=== PATIENT | female | born 1965 | race Caucasian/White ===

== ENCOUNTER 2016-07-28 11:33 | Day surgery (SDC) | payer OTHER ==
[2016-07-28] MEDS ORDERED: MIDAZOLAM HCL 2MG/2ML VIAL IV ONE (14:00)
[2016-07-28] MEDS ORDERED: PROPOFOL 10 MG/ML VIAL IV ONE (14:00)
[2016-07-28] MEDS ORDERED: LIDOCAINE 2% MDV (20MG/ML) 20ML VIAL IV ONE (14:00)
--- NOTE | 2016-08-02 11:02 | Operative Note ---
DATE OF SURGERY: 07/28/2016. REQUESTING PHYSICIAN: Dr. Luis Alfredo Alvarado. SURGEON: Shawna Moise MD. OPERATION: COLONOSCOPY. INDICATION FOR PROCEDURE: This is a 50-year-old female with history of intermittent episodes of fecal incontinence with associated constipation, who presented for colonoscopy. POSTOPERATIVE DIAGNOSES: 1. Normal . 2. A few scattered left-sided colon diverticulotis. 3. A 3 mm sessile sigmoid colon polyp that was removed by cold biopsy forceps. 4. Otherwise normal colon and terminal ileum and rectum. SEDATION: Sedation is per Anesthesia. Pulse oximetry was monitored throughout the duration of the procedure to maintain O2 saturation of 90% or greater. Supplemental oxygen was administered via nasal cannula. Cardiac and vital signs were monitored throughout the duration of the procedure, and they were stable. PROCEDURE: The procedure of colonoscopy, risks and alternatives to the procedure, including the risks of bleeding and perforation among others, were explained to the patient, who voiced understanding and agrees to have the procedure done. Physical examination was performed, and the patient was found stable for sedation. The patient was then placed in the left lateral position and sedation was initiated. Digital rectal exam was performed and showed small external hemorrhoids with no palpable rectal masses. An Olympus [id number] colonoscope was then inserted into the rectum and under direct visualization was advanced to the cecum without difficulty. The ileocecal valve and appendiceal orifice were identified and photographed. The colonic mucosa was carefully examined upon introduction of the colonoscope. There were occasional diverticula noted in the sigmoid and descending colon. In the sigmoid colon was a 3 mm sessile polyp that was noted and was removed by cold biopsy forceps. There were no other lesions noted. The colonoscope was then withdrawn after the terminal ileal mucosa was inspected for about 10 cm, and it appeared normal. The cecum, ascending colon, transverse colon, the rest of the descending colon and sigmoid colon mucosa appeared normal. In the rectum, grade 3 internal hemorrhoids were noted, but there was no rectocele or any prolapse that was noted. The colonoscope was then withdrawn, and the procedure was terminated. The patient tolerated the procedure well, without immediate complications. She remained with stable vital signs and was transferred to the recovery room. PLAN AND RECOMMENDATIONS: 1. Patient should be on a high-fiber diet and to drink lots of fluids. 2. She is to ingest at least 25 g of fiber a day. 3. She is to continue on her pelvic floor exercises, and I will be happy to see her back as needed. Thank you for allowing me to participate in the care of your patient. Shawna Moise MD CC: Joo PHILLIPS MD [facility]
== END 2016-07-28 13:46 | disposition home or self-care (01) ==
LOC: HOP 11:33
PROVIDERS: ATTEND Internal Medicine Gastroenterology
DX: Z12.11 Encounter for screening for malignant neoplasm of colon (principal); D12.5 Benign neoplasm of sigmoid colon; R15.9 Full incontinence of feces; K57.30 Diverticulosis of large intestine without perforation or abscess without bleeding; I10 Essential (primary) hypertension